=== PATIENT | female | born 1955 | race Caucasian/White ===

== ENCOUNTER 2016-11-18 12:07 | Observation (INO) | payer BC ==
--- NOTE | 2016-11-18 12:24 | EDPHY ---
H & P Stated Complaint: Intermittent sharp CP since yesterday;anxiety,recent sinus infection; Time Seen by Provider: 11/18/16 12:11 HPI/ROS: CHIEF COMPLAINT: Chest pain HISTORY OF PRESENT ILLNESS: The patient is a 61 year old female sent here by Dr. Zavala for intermittent chest discomfort. The patient saw here PCP last week for shortness of breath and 1 episode of chest discomfort. The patient reports a band of pain around her chest that occurred during exercise. The chest pain went away, but she continued to feel short of breath. She was diagnosed with a sinus infection and was started on antibiotics. She has a history of asthma and was started on a nebulizer three times a day as well as albuterol inhaler. The chest pain returned yesterday with pain radiating into the right side of her neck, back, and down her left arm. The chest pain has occurred two more times while at rest. This morning she experienced slight chest discomfort around 10:30am that lasted for about 10 minutes. These episodes of chest pain feel different than her usual asthma complaints. She denies nausea, vomiting. No history of fever, cough, body aches. Patient's states that she had chills and diaphoresis last night. No urinary complaints. No edema. No known history of coronary artery disease, hypertension , hypercholesterolemia, cardiac disease, pulmonary embolism. REVIEW OF SYSTEMS: Aside from elements discussed in the HPI, a comprehensive 10-point review of systems was reviewed and is negative. PAST MEDICAL HISTORY: Asthma, anxiety, breast cancer, celiac disease SOCIAL HISTORY: . VITAL SIGNS: Reviewed by me GENERAL: Well-developed, well-nourished, resting comfortably in no respiratory distress. HEENT: Atraumatic. Eyes: No icterus, no injection. Mouth: moist mucous membranes. No erythema or lesions. Neck: supple with no adenopathy. LUNGS: Clear to auscultation bilaterally, no wheezes, rhonchi or rales. CARDIAC: Regular rate and rhythm, no rubs, murmurs or gallops. ABDOMEN: Soft, nontender, nondistended, bowel sounds normal. BACK: No CVA tenderness. EXTREMITIES: No trauma. No edema. Range of motion is normal throughout. NEURO: Alert and oriented, grossly nonfocal. SKIN: Warm and dry, no rash. PSYCHIATRIC: Normal mentation, no agitation. Portions of this note were transcribed by a director [employer]. I personally performed a history, physical exam, medical decision making, and confirmed accuracy of information the transcribed note. Source: Patient - Personal History Current Tetanus Diphtheria and Acellular Pertussis (TDAP): Yes - Medical/Surgical History Hx Asthma: Yes - Social History Smoking Status: Former smoker Constitutional: Initial Vital Signs Temperature (C) 36.4 C 11/18/16 12:08 Heart Rate 88 11/18/16 12:08 Respiratory Rate 18 11/18/16 12:08 Blood Pressure 142/94 H 11/18/16 12:08 O2 Sat (%) 94 11/18/16 12:08 O2 Delivery Mode Room Air Allergies/Adverse Reactions: No Known Allergies Allergy (Unverified 11/18/16 12:13) Home Medications: Medication Instructions Recorded Albuterol [Proventil Inhaler HFA 2 puffs IH Q4H PRN 11/18/16 (*)] Albuterol [Proventil Neb] 3 ml IH Q4H PRN 11/18/16 Amoxicillin/Clavulanate Pot 875 mg PO BID 11/18/16 [Augmentin 875 MG TAB (*)] Fluticasone/Salmeter 100/50Mcg 1 puffs IH BID 11/18/16 [Advair 100/50 (*)] Montelukast Sodium [Singulair 10 10 mg PO HS 11/18/16 mg (*)] Medical Decision Making - Diagnostics EKG Interpretation: The 12 lead EKG was interpreted by myself. See hard copy and/or "tracemaster" electronic copy for interpretation: Sinus rhythm, non-ischemic. Imaging: Study: X-ray of the chest was obtained. Results: Normal. Images were interpreted by the radiologist, Dr. Aranda. I viewed the images myself on the PACS system. ED Course/Re-evaluation: Lab work appears normal. Troponin is negative. D-dimer is negative. Chest x-ray is normal. 1320: I discussed findings with the patient. She agrees with the plan for admission. She tells me that last night when she experienced chest pain she was diaphoretic. 1330: The hospitalist accepts the patient for admission. Patient received 324 mg of aspirin. Differential Diagnosis: After history and physical examination, the differential for chest pain was considered, including but not limited to, myocardial ischemia, acute coronary syndrome, pulmonary embolus, chest wall pain, pleural inflammation and pulmonary infectious causes. Differential diagnosis for the patient's shortness of breath was considered including but not limited to pulmonary infectious processes, COPD exacerbation, pulmonary emboli, pulmonary edema, congestive heart failure, and cardiac causes. Consult/Admit Bed Type: Dr. Yu [facility] - Data Points Laboratory Results: Laboratory Results 11/18/16 12:39 11/18/16 12:39 11/18/16 11/18/16 11/18/16 12:39 12:39 12:39 WBC 7.75 10^3/uL 10^3/uL (3.80-9.50) RBC 4.35 10^6/uL 10^6/uL (4.18-5.33) Hgb 15.5 g/dL g/dL (12.6-16.3) Hct 42.5 % % (38.0-47.0) MCV 97.7 fL fL (81.5-99.8) MCH 35.6 pg H pg (27.9-34.1) MCHC 36.5 g/dL g/dL (32.4-36.7) RDW 11.9 % % (11.5-15.2) Plt Count 259 10^3/uL 10^3/uL (150-400) MPV 9.8 fL fL (8.7-11.7) Neut % (Auto) 47.4 % % (39.3-74.2) Lymph % (Auto) 34.5 % % (15.0-45.0) Early % (Auto) 9.0 % % (4.5-13.0) Eos % (Auto) 8.5 % H % (0.6-7.6) Baso % (Auto) 0.6 % % (0.3-1.7) Nucleat RBC Rel Count 0.0 % % (0.0-0.2) Absolute Neuts (auto) 3.67 10^3/uL 10^3/uL (1.70-6.50) Absolute Lymphs (auto) 2.67 10^3/uL 10^3/uL (1.00-3.00) Absolute Monos (auto) 0.70 10^3/uL 10^3/uL (0.30-0.80) Absolute Eos (auto) 0.66 10^3/uL H 10^3/uL (0.03-0.40) Absolute Basos (auto) 0.05 10^3/uL 10^3/uL (0.02-0.10) Absolute Nucleated RBC 0.00 10^3/uL 10^3/uL (0-0.01) Immature Gran % 0.0 % % (0.0-1.1) Immature Gran # 0.00 10^3/uL 10^3/uL (0.00-0.10) D-Dimer 0.37 ug/mLFEU ug/mLFEU (0.00-0.50) Sodium 135 mEq/L mEq/L (134-144) Potassium 4.3 mEq/L mEq/L (3.5-5.2) Chloride 102 mEq/L mEq/L (97-110) Carbon Dioxide 22 mEq/l mEq/l (22-31) Anion Gap 11 mEq/L mEq/L (8-16) BUN 11 mg/dL mg/dL (7-23) Creatinine 0.6 mg/dL mg/dL (0.6-1.0) Estimated GFR > 60 Glucose 142 mg/dL H mg/dL (70-100) Calcium 9.8 mg/dL mg/dL (8.5-10.4) Troponin I < 0.012 ng/mL ng/mL (0-0.034) Medications Given: Discontinued Medications Aspirin (Aspirin) 324 mg PO EDNOW ONE Stop: 11/18/16 14:25 Last Admin: 11/18/16 14:32 Dose: 324 mg Departure - Departure Disposition: [facility] Inpatient Acute Clinical Impression: Chest discomfort, Dyspnea Condition: Good Report Scribed for: Stacy Fitch Report Scribed by: Kat Guthrie Date of Report: 11/18/16 Time of Report: 12:31
--- NOTE | 2016-11-18 12:29 | CPEKG ---
Heart Rate: 86 RR Interval: 698 P-R Interval: 148 QRSD Interval: 78 QT Interval: 364 QTC Interval: 436 P Riverview: 51 QRS Riverview: 32 T Wave Riverview: 36 EKG Severity - NORMAL ECG - EKG Impression: SINUS RHYTHM Electronically Signed By: Hunter Lamb 19-Nov-2016 12:01:24
[2016-11-18 12:51] LABS: ADD DIFF? NO; ADD MORPH? NO; ADD SCAN? NO; ATYPICAL LYMPHOCYTE FLAG 20 (0-99); FRAGMENT RBC FLAG 0 (0-99); HEMATOCRIT 42.5 % (38.0-47.0); HEMOGLOBIN 15.5 g/dL (12.6-16.3); LEFT SHIFT FLG 0 (0-99); LIPEMIA HEMOLYSIS FLAG 90 (0-99); MEAN CELL HEMOGLOBIN 35.6 pg (27.9-34.1); MEAN CELL HEMOGLOBIN CONCENTR. 36.5 g/dL (32.4-36.7); MEAN CELL VOLUME 97.7 fL (81.5-99.8); MEAN PLATELET VOLUME 9.8 fL (8.7-11.7); PLATELET CLUMPS FLAG 10 (0-99); PLATELET COUNT 259 10^3/uL (150-400); RED BLOOD CELL COUNT 4.35 10^6/uL (4.18-5.33); RED CELL DISTRIBUTION WIDTH 11.9 % (11.5-15.2)
[2016-11-18 13:06] LABS: ANION GAP 11 mEq/L (8-16); CALCIUM 9.8 mg/dL (8.5-10.4); CARBON DIOXIDE 22 mEq/l (22-31); CHLORIDE 102 mEq/L (97-110); CREATININE 0.6 mg/dL (0.6-1.0); GLOMERULAR FILTRATION RATE > 60; GLUCOSE 142 mg/dL (70-100); POTASSIUM 4.3 mEq/L (3.5-5.2); SODIUM 135 mEq/L (134-144)
[2016-11-18 13:17] LABS: TROPONIN I < 0.012 ng/mL (0-0.034)
[2016-11-18] MEDS ORDERED: ASPIRIN 81 MG CHEWABLE TAB PO ONE (14:24)
[2016-11-18 14:57] VITALS: RESP 16
[2016-11-18] MEDS ORDERED: ALBUTEROL 3 ML DEYVIAL IH PRN (15:52)
--- NOTE | 2016-11-18 16:23 | GHP ---
DATE OF ADMISSION: 11/18/2016 HISTORY OF PRESENT ILLNESS: The patient is a 61-year-old female with a history of asthma and breast cancer who presents with chest pain. She had an episode of exertional chest pain last week. It is described as a band of chest tightness that occurred while exercising on a spin bike. It was a mod erate level of exertion. She has had a decrement of exertional tolerance lately, partially because the plantar fasciitis, but she also notes that she gets winded increasingly easily. She has no spec [facility] family history. She quit smoking in 1984. She does not have high cholesterol or hyperlipidemi a of which she is aware. She does not have diabetes, does not use cocaine, no strong family history of coronary disease. She saw her primary care physician last week, was treated for bronchitis and asthma flare. Last nig ht she had an episode of similar chest pain that radiated to her right jaw. She felt pale, she did not turn on the light, she sought care this morning where she had a negative troponin and normal D-d david, non-ischemic EKG. REVIEW OF SYSTEMS: Complete 10-point review of systems conducted, negative except as in the HPI. PAST MEDICAL HISTORY: 1. Breast cancer. 2. Asthma. ALLERGIES: No known drug allergies. HOME MEDICATIONS: 1. Augmentin. 2. DuoNeb. 3. Montelukast. 4. Advair. SOCIAL HISTORY: Lives in [place], [facility] from [place], at the bedside. FAMILY HISTORY: Negative for coronary disease. PHYSICAL EXAM: VITAL SIGNS: Temp 36.4, blood pressure 142/94, pulse 80, breathing 18 times a minut e, 94% on room air. GENERAL: No acute distress. HEENT: Sclerae anicteric. Oropharynx clear. Mu cous membranes moist. NECK: Supple. No lymphadenopathy or JVD. LUNGS: Clear to auscultation humphrey aterally. HEART: S1, S2. ABDOMEN: Soft, nontender, nondistended. LOWER EXTREMITIES: Without ed marine. Calves nontender. SKIN: Without rash. NEUROLOGIC EXAM: Grossly nonfocal. LABS: White count 7.8, hematocrit 42.5, platelets are 259,000, D-dimer is 0.37. Chem-7 normal. Glu cose 142, troponin less than 0.012. Chest x-ray, interpreted by me, shows no acute cardiopulmonary disease. EKG interpreted by me, shows sinus rhythm at 86, normal axis and intervals. No ST or T-wave changes . ASSESSMENT AND PLAN: This is a 61-year-old female, chest pain: 1. Chest pain. There are some concerning features to this including decrement of exertion toleranc e, etc. At this point in time, I will cycle troponins, perform exercise stress test in the morning . 2. Recent asthma flare, she is on Augmentin. I think it is reasonable to continue, although it is n ot clear that she has an active bacterial infection. 3. History of breast cancer. This is quiescent. 4. Question of pulmonary embolism, negative D-dimer effectively rules this out. 5. Disposition and observation status. 6. Discussed the plan with Dr. Stacy Fitch. /[id number]/MODL
[2016-11-18] MEDS: AMOXICILLIN/CLAVULANATE POT 875/125 MG TAB PO SCH (20:55)
[2016-11-18] MEDS ORDERED: MONTELUKAST SODIUM 10 MG TAB PO SCH (21:00)
[2016-11-18] MEDS: FLUTICASONE/SALMETER 100/50MCG DISKUS IH SCH (21:02)
[2016-11-19 05:58] LABS: CHOLESTEROL 155 mg/dL (140-220); CHOLESTEROL/HDL RATIO 2.92 RATIO (1.00-4.44); HIGH DENSITY LIPOPROTEIN 53 mg/dL (40-85); LOW DENSITY LIPOPROTEIN 85 mg/dL (80-100); NON-HIGH DENSITY LIPOPROTEIN 102 mg/dL (90-129); TRIGLYCERIDE 87 mg/dL (35-135); VERY LOW DENSITY LIPOPROTEINS 17 mg/dL (8-25)
[2016-11-19 06:08] LABS: TROPONIN I < 0.012 ng/mL (0-0.034)
[2016-11-19] MEDS: FLUTICASONE/SALMETER 100/50MCG DISKUS IH SCH (08:41)
[2016-11-19] MEDS ORDERED: ASPIRIN 325 MG TAB PO SCH (09:00)
[2016-11-19] MEDS: AMOXICILLIN/CLAVULANATE POT 875/125 MG TAB PO SCH (09:30)
[2016-11-19 09:32] VITALS: BP 117/72; PULSE 86; TEMP 97.8; O2SAT 95
--- NOTE | 2016-11-19 10:17 | PDCARST ---
CAR Stress Test Results Type of Stress Test: Nuclear TM stress test Indication: CP Description of Procedure: After informed consent was obtained, pt was established to ECG, BP, HR, and oximetry monitoring. At b/l, pt has SR, HR 92, BP 118/70, O2 sat 96% RA. Pt exercised for a total 9:00. There were no arrhythmias or ECG changes. Peak BP was 144/78. Pt achieved HR of 166 which is 10% of MPHR for age. Did exp chest tightness that is c/w her asthma. O2 sats normal throughout test. Impression: DTS: +9 Conclusion: Await nuclear images.
--- NOTE | 2016-11-19 12:57 | HOSPPROG ---
Hospitalist Progress Note Assessment/Plan: home today see dc summary Subjective: neg stress. neg tele Objective: Vital Signs Temp Pulse Resp BP Pulse Ox 36.6 C 86 16 117/72 95 11/19/16 08:00 11/19/16 08:00 11/19/16 08:00 11/19/16 08:00 11/19/16 08:00 - Physical Exam Constitutional: no apparent distress, appears nourished Eyes: PERRL, anicteric sclera Ears, Nose, Mouth, Throat: moist mucous membranes, hearing normal Cardiovascular: regular rate and rhythym, no murmur, rub, or gallop Respiratory: no respiratory distress, no rales or rhonchi Gastrointestinal: normoactive bowel sounds, soft, non-tender abdomen Genitourinary: addison in urethra Skin: warm, normal color Musculoskeletal: full muscle strength, no muscle tenderness Neurologic: AAOx3, sensation intact bilaterally Psychiatric: interacting appropriately ICD10 Worksheet Patient Problems: Problems Problem Status Onset Chest discomfort Acute Dyspnea Acute
--- NOTE | 2016-11-19 15:33 | GDS ---
DISCHARGE DIAGNOSES: 1. Chest pain with negative cardiac and pulmonary embolus workup. 2. Asthma with chest tightness. HOSPITAL COURSE: Please see admission history and physical by Dr. Yoan Yu. The patient pres ented with exertional chest symptoms. She had a nonischemic EKG and negative troponin x3, although the middle troponin was not undetectable. She underwent stress test with good exercise tolerance an d no ischemic EKG changes and no evidence of ischemia or infarct on nuclear images. She had an LDL of 85. She is discharged home today, and no new prescriptions. She complains of chest tightness an d shortness of breath. She is not wheezing. She is moving good air. I wrote her a prescription fo r pulmonary function test and recommended pulmonary referral as an outpatient. She is on asthma reg imen of aspirin regimen of Santos Edwards, and p.r.n. albuterol. /[id number]/MODL
== END 2016-11-19 13:15 | disposition home or self-care (01) ==
LOC: F1N 15:22
PROVIDERS: ADMIT Internal Medicine; ATTEND Internal Medicine
DX: R07.9 Chest pain, unspecified (principal); J45.909 Unspecified asthma, uncomplicated; Z85.3 Personal history of malignant neoplasm of breast
CPT/HCPCS: 71020; 78452; 93005; 93017; A9500; G0378

== ENCOUNTER → 2017-02-25 | Outpatient (CLI) | payer BC | LOC: CIMAGING 15:14 | PROVIDERS: ATTEND Family Medicine | DX: M77.31 Calcaneal spur, right foot (principal) | CPT/HCPCS: 73630-PO ==

== ENCOUNTER → 2017-06-28 | Outpatient (CLI) | payer BC | LOC: CIMAGING 14:27 | PROVIDERS: ATTEND Family Medicine | DX: Z12.31 Encounter for screening mammogram for malignant neoplasm of breast (principal); Z85.3 Personal history of malignant neoplasm of breast; Z80.3 Family history of malignant neoplasm of breast | CPT/HCPCS: G0202 ==

== ENCOUNTER → 2018-07-13 | Outpatient (CLI) | payer BC | LOC: CIMAGING 14:26 | PROVIDERS: ATTEND Family Medicine | DX: Z12.31 Encounter for screening mammogram for malignant neoplasm of breast (principal); Z85.3 Personal history of malignant neoplasm of breast ==

== ENCOUNTER → 2018-10-29 | Outpatient (CLI) | payer OTHER | LOC: FIMAGING 07:49 | PROVIDERS: ATTEND Orthopaedic Surgery Sports Medicine | DX: M75.41 Impingement syndrome of right shoulder (principal); M75.111 Incomplete rotator cuff tear or rupture of right shoulder, not specified as traumatic; M75.21 Bicipital tendinitis, right shoulder; M19.011 Primary osteoarthritis, right shoulder ==